=== PATIENT | female | born 1970 | race Two or more races ===

== ENCOUNTER 2021-07-30 15:34 | Outpatient (REF) | payer OTHER, SELFPAY ==
--- NOTE | ~2021-07-30 | XR_ITS ---
EXAMINATION: XR HAND, BILATERAL CLINICAL INFORMATION: Pain. Primary osteoarthritis. COMPARISON: None. TECHNIQUE: 3 views each hand. FINDINGS: Left Hand: The IP, MCP, intercarpal and the radioulnar carpal joint space is maintained normal. No bony erosive changes seen. There are no loose bodies or soft tissue swelling. Right Hand: The IP, MCP, intercarpal and radioulnar carpal joint spaces are maintained normal. No bony erosive changes, loose bodies or periarticular spurring seen. No soft tissue swelling seen. XR/XR hand RT min 3V IMPRESSION: Unremarkable bilateral hand exam.
--- NOTE | ~2021-07-30 | XR_ITS ---
EXAMINATION: XR HAND, BILATERAL CLINICAL INFORMATION: Pain. Primary osteoarthritis. COMPARISON: None. TECHNIQUE: 3 views each hand. FINDINGS: Left Hand: The IP, MCP, intercarpal and the radioulnar carpal joint space is maintained normal. No bony erosive changes seen. There are no loose bodies or soft tissue swelling. Right Hand: The IP, MCP, intercarpal and radioulnar carpal joint spaces are maintained normal. No bony erosive changes, loose bodies or periarticular spurring seen. No soft tissue swelling seen. XR/XR hand LT min 3V IMPRESSION: Unremarkable bilateral hand exam.
== END 2021-07-30 15:35 | disposition home or self-care (01) ==
LOC: HO.XRAY 15:34
PROVIDERS: PCP Internal Medicine; Visit Provider Internal Medicine Rheumatology
DX: M19.041 Primary osteoarthritis, right hand (principal); M19.042 Primary osteoarthritis, left hand
CPT/HCPCS: 73130

== ENCOUNTER → 2021-08-13 15:39 | Outpatient (BNVA) | payer OTHER, SELFPAY | PROVIDERS: PCP Internal Medicine; Visit Provider Internal Medicine Rheumatology | DX: M79.641 Pain in right hand (principal) ==

== ENCOUNTER → 2021-08-21 08:39 | Outpatient (BNVA) | payer OTHER, SELFPAY | PROVIDERS: PCP Internal Medicine; Visit Provider Internal Medicine Rheumatology | DX: M19.041 Primary osteoarthritis, right hand (principal); M19.042 Primary osteoarthritis, left hand; M65.9 Synovitis and tenosynovitis, unspecified | CPT/HCPCS: 20550 ==